=== PATIENT | male | born 1995 | race Caucasian/White ===

== ENCOUNTER 2023-09-02 08:03 | Emergency (ER) | payer OTHER ==
[~2023-09-02] VITALS: Ht 172.7 cm; Wt 115.5 kg
[2023-09-02 08:17] VITALS: BP 168/114; TEMP 98.1
[2023-09-02] MEDS ORDERED: NS 100 ML IV SCH (11:44)
[2023-09-02] MEDS ORDERED: Iohexol 300 - 100 ML VIAL IV ONE (11:44)
[2023-09-02] MEDS ORDERED: Ibuprofen 400 MG TAB PO ONE (11:45)
[2023-09-02 12:38] VITALS: PULSE 75
== END 2023-09-02 12:39 | disposition home or self-care (01) ==
LOC: COL.ER 08:03
DX: S61.211A Laceration without foreign body of left index finger without damage to nail, initial encounter (principal); S61.217A Laceration without foreign body of left little finger without damage to nail, initial encounter; S61.213A Laceration without foreign body of left middle finger without damage to nail, initial encounter; S61.215A Laceration without foreign body of left ring finger without damage to nail, initial encounter; S61.012A Laceration without foreign body of left thumb without damage to nail, initial encounter; S39.012A Strain of muscle, fascia and tendon of lower back, initial encounter; S16.1XXA Strain of muscle, fascia and tendon at neck level, initial encounter; V49.40XA Driver injured in collision with unspecified motor vehicles in traffic accident, initial encounter; Y92.410 Unspecified street and highway as the place of occurrence of the external cause
CPT/HCPCS: Q9967